=== PATIENT | male | born 1960 | race African-American/Black ===

== ENCOUNTER 2017-12-02 20:56 | Inpatient (IN) | payer SELFPAY ==
[2017-12-02] MEDS ORDERED: ASPIRIN 81 MG TABLET, CHEWABLE PO ONE (21:20)
[2017-12-02 22:11] LABS: ABSOLUTE LYMPHOCYTES (AUTO) 0.8 10^3/uL (0.5-4.7); ABSOLUTE MONOCYTES (AUTO) 0.6 10^3/uL (0.1-1.4); ABSOLUTE NEUT (AUTO) 7.3 10^3/uL (1.7-8.2); BASOPHILS % (AUTO) 0.5 % (0-2); EOSINOPHILS % (AUTO) 0.1 % (0-6); HEMATOCRIT 41.8 % (37.9-51.0); HEMOGLOBIN 14.2 g/dL (13.5-17.0); MEAN CORPUSCULAR HEMOGLOBIN 32.1 pg (27.0-33.4); MEAN CORPUSCULAR VOLUME 94 fl (80-97); MONOCYTES % (AUTO) 6.9 % (3-13); PLATELET COUNT 160 10^3/uL (150-450); RED BLOOD COUNT 4.43 10^6/uL (4.35-5.55); SEGMENTED NEUTROPHILS % (AUTO) 83.5 % (42-78); TOTAL CELLS COUNTED % (AUTO) 100 %; WHITE BLOOD COUNT 8.8 10^3/uL (4.0-10.5)
--- NOTE | 2017-12-02 22:20 | RADIOLOGY REPORT (SQ) ---
EXAM DESCRIPTION: CHEST SINGLE VIEW COMPLETED DATE/TIME: 12/02/2017 10:04 pm REASON FOR STUDY: chest pain COMPARISON: None. EXAM PARAMETERS: NUMBER OF VIEWS: One view. TECHNIQUE: Single frontal radiographic view of the chest acquired. RADIATION DOSE: NA LIMITATIONS: None. FINDINGS: LUNGS AND PLEURA: There is mild hyperexpansion of the lungs. Mild interstitial changes ar e suggested in the lung bases. There is a minimal right pleural effusion. No localized infiltrate i s present. No mass is seen MEDIASTINUM AND HILAR STRUCTURES: No masses. Contour normal. HEART AND VASCULAR STRUCTURES: Heart normal in size. Normal vasculature. BONES: No acute findings. HARDWARE: None in the chest. OTHER: No other significant finding. IMPRESSION: Chronic lung changes with small right pleural effusion and no acute cardiopulmonary dise ase. TECHNICAL DOCUMENTATION: JOB ID: [id number] [employer]- All Rights Reserved Reading location - IP/workstation name: [email or web address]
[2017-12-02 22:25] LABS: ALANINE AMINOTRANSFERASE 80 U/L (21-72); ALBUMIN 4.6 g/dL (3.5-5.0); ALKALINE PHOSPHATASE 147 U/L (38-126); ANION GAP 18 (5-19); ASPARTATE AMINO TRANSFERASE 130 U/L (17-59); BILIRUBIN,DIRECT 0.3 mg/dL (0.0-0.4); BILIRUBIN,TOTAL 0.5 mg/dL (0.2-1.3); BLOOD UREA NITROGEN 9 mg/dL (7-20); CALCIUM 9.4 mg/dL (8.4-10.2); CARBON DIOXIDE 22 mmol/L (22-30); CHLORIDE 97 mmol/L (98-107); CREATINE KINASE 116 U/L (55-170); GLUCOSE 87 mg/dL (75-110); POTASSIUM 4.6 mmol/L (3.6-5.0); SODIUM 136.6 mmol/L (137-145); TOTAL PROTEIN 8.6 g/dL (6.3-8.2)
[2017-12-02 22:37] LABS: CREATINE KINASE MB 0.87 ng/mL (<4.55); TROPONIN I < 0.012 ng/mL
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
[2017-12-02] MEDS ORDERED: IPRATROPIUM/ALBUTEROL 0.5-2.5 MG/3 ML AMPUL NEB ONE (23:42)
[2017-12-02] MEDS ORDERED: NORMAL SALINE 1000 ML 1,000 ML IV ONE (23:42)
[2017-12-02] MEDS ORDERED: KETOROLAC TROMETHAMINE INJ/PF 30 MG/1 ML SDV IV ONE (23:43)
[2017-12-03 01:12] LABS: APPEARANCE,URINE SLIGHTLY-CLOUDY; BILIRUBIN,URINE NEGATIVE (NEGATIVE); COLOR,URINE YELLOW; GLUCOSE, URINE NEGATIVE (NEGATIVE); KETONES,URINE TRACE mg/dL (NEGATIVE); LEUKOCYTE ESTERASE,URINE NEGATIVE (NEGATIVE); NITRITE,URINE NEGATIVE (NEGATIVE); PROTEIN,URINE 100 mg/dL (NEGATIVE); URINE SPECIFIC GRAVITY 1.026
--- NOTE | 2017-12-03 01:19 | RADIOLOGY REPORT (SQ) ---
EXAM DESCRIPTION: CT ABD/PELVIS WITH IV ONLY (accession [id number]), CT CHEST WITH (accession [id number]) CLINICAL HISTORY: 57 years Male, Right upper quadrant and right lower quadrant pain COMPARISON: CR, 12/02/17. TECHNIQUE: 59 mL Isovue-370 IV contrast. Coronal and sagittal reformat. This exam was performed according to our departmental dose-optimization program, which includes automated exposure control, adjustment of the mA and/or kV according to patient size and/or use of iterative reconstruction technique. FINDINGS: Moderate patchy airspace opacity in the right lower lobe and small patchiness of the right middle lobe. Scattered reticular mild patchiness of the right upper lobe. Mild mediastinal lymphadenopathy includes a 1.6 and earlier precarinal lymph node. Atherosclerosis. 0.3 cm degenerative L5 retrolisthesis. [id number] disc bulge between the L3 and S1 levels. Mild bilateral L5 foraminal stenoses. Inferior neck, axillae, airway, heart, liver, gallbladder, pancreas, spleen, adrenals, renal system, gastrointestinal tract, pelvic organs, lymphatics, vasculature, and musculoskeleton appear otherwise unremarkable. IMPRESSION: 1. Multifocal right-sided pneumonia. 2. No acute abdominal or pelvic findings.
--- NOTE | 2017-12-03 01:19 | RADIOLOGY REPORT (SQ) ---
EXAM DESCRIPTION: CT ABD/PELVIS WITH IV ONLY (accession [id number]), CT CHEST WITH (accession [id number]) CLINICAL HISTORY: 57 years Male, Right upper quadrant and right lower quadrant pain COMPARISON: CR, 12/02/17. TECHNIQUE: 59 mL Isovue-370 IV contrast. Coronal and sagittal reformat. This exam was performed according to our departmental dose-optimization program, which includes automated exposure control, adjustment of the mA and/or kV according to patient size and/or use of iterative reconstruction technique. FINDINGS: Moderate patchy airspace opacity in the right lower lobe and small patchiness of the right middle lobe. Scattered reticular mild patchiness of the right upper lobe. Mild mediastinal lymphadenopathy includes a 1.6 and earlier precarinal lymph node. Atherosclerosis. 0.3 cm degenerative L5 retrolisthesis. Damku-ro-szhmjbcp disc bulge between the L3 and S1 levels. Mild bilateral L5 foraminal stenoses. Inferior neck, axillae, airway, heart, liver, gallbladder, pancreas, spleen, adrenals, renal system, gastrointestinal tract, pelvic organs, lymphatics, vasculature, and musculoskeleton appear otherwise unremarkable. IMPRESSION: 1. Multifocal right-sided pneumonia. 2. No acute abdominal or pelvic findings.
[2017-12-03] MEDS ORDERED: IPRATROPIUM/ALBUTEROL 0.5-2.5 MG/3 ML AMPUL NEB PRN ×3 (01:32→01:33)
[2017-12-03] MEDS ORDERED: ACETAMINOPHEN 325 MG TABLET PO PRN (01:32)
[2017-12-03] MEDS ORDERED: HYDRALAZINE HCL INJ/PF 20 MG/1 ML SDV IV PRN (01:32)
[2017-12-03] MEDS ORDERED: TUBERCULIN,PURIF.PROT.DERIV. 5 TU/0.1 ML TEST 1 ML VIAL ID ONE ×2 (01:33→11:30)
[2017-12-03] MEDS ORDERED: CEFTRIAXONE INJ 1000 MG VIAL IV ONE (01:34)
[2017-12-03] MEDS ORDERED: AZITHROMYCIN INJ 500 MG VIAL IV ONE (01:34)
[2017-12-03] MEDS ORDERED: NORMAL SALINE 1000 ML 1,000 ML IV SCH (01:45)
[2017-12-03] MEDS ORDERED: AZITHROMYCIN INJ 500 MG VIAL IV PRN ×2 (01:54→02:00)
[2017-12-03] MEDS ORDERED: CEFTRIAXONE 1 GM/D5W RTU 1 GM/50 ML RTUPB IV ONE (02:00)
[2017-12-03] MEDS ORDERED: AZITHROMYCIN 500 MG in DEXTROSE 5%-WATER 250 ML IV ONE (02:00)
[2017-12-03] MEDS: ACETAMINOPHEN 325 MG TABLET PO PRN (04:08)
[2017-12-03] MEDS: HEPARIN SOD (PORCINE) 5,000 UNIT/ML 1 ML SYRINGE SUBCUT SCH ×3 (05:21→21:05)
[2017-12-03] MEDS ORDERED: HEPARIN SOD (PORCINE) 5,000 UNIT/ML 1 ML SYRINGE SUBCUT SCH (06:00)
[2017-12-03 06:24] LABS: ABSOLUTE LYMPHOCYTES (AUTO) 0.4 10^3/uL (0.5-4.7); ABSOLUTE MONOCYTES (AUTO) 0.5 10^3/uL (0.1-1.4); ABSOLUTE NEUT (AUTO) 6.2 10^3/uL (1.7-8.2); BASOPHILS % (AUTO) 0.3 % (0-2); EOSINOPHILS % (AUTO) 0.1 % (0-6); HEMATOCRIT 35.3 % (37.9-51.0); LYMPHOCYTES % (AUTO) 5.6 % (13-45); MEAN CORPUSCULAR HEMOGLOBIN 31.7 pg (27.0-33.4); MEAN CORPUSCULAR HGB CONC 33.8 g/dL (32.0-36.0); MEAN CORPUSCULAR VOLUME 94 fl (80-97); MONOCYTES % (AUTO) 7.2 % (3-13); PLATELET COUNT 117 10^3/uL (150-450); RED BLOOD COUNT 3.77 10^6/uL (4.35-5.55); RED CELL DISTRIBUTION WIDTH 14.2 % (11.5-14.0); SEGMENTED NEUTROPHILS % (AUTO) 86.8 % (42-78); TOTAL CELLS COUNTED % (AUTO) 100 %; WHITE BLOOD COUNT 7.1 10^3/uL (4.0-10.5)
[2017-12-03 06:25] LABS: HEMOGLOBIN 11.9 g/dL (13.5-17.0)
--- NOTE | 2017-12-03 07:52 | EKG REPORT ---
SEVERITY:- BORDERLINE ECG - SINUS TACHYCARDIA PROBABLE LEFT ATRIAL ABNORMALITY NONSPECIFIC ST-T CHANGES LATERAL LEADS. INTRAVENTRICULAR CONDUCTION DELAY : Confirmed by: Agustin Jean MD 03-Dec-2017 07:52:01
[2017-12-03] MEDS: KETOROLAC TROMETHAMINE INJ/PF 30 MG/1 ML SDV IV PRN ×2 (10:16→18:14)
[2017-12-03] MEDS: FLUTICASONE NASAL SPRAY 50 MCG/SPRY 120 SPRAY/16 GM NASL SCH ×2 (10:18→21:04)
[2017-12-03] MEDS: THIAMINE HCL 100 MG, FOLIC ACID 1 MG in NORMAL SALINE 250 ML IV SCH (10:33)
--- NOTE | 2017-12-03 16:34 | PDOC PROGRESS REPORT ---
Subjective Progress Note for:: 12/03/17 Subjective:: Medial overnight with difficulty breathing Reason For Visit: COPD EXACERBATION, PNEUMONIA Physical Exam Vital Signs: Temp Pulse Resp BP Pulse Ox 98.9 F 78 16 138/82 H 98 12/03/17 10:55 12/03/17 14:00 12/03/17 12:29 12/03/17 10:55 12/03/17 12:29 Intake & Output 12/02/17 12/03/17 12/04/17 06:59 06:59 06:59 Intake Total 460 Balance 460 Weight 59.4 kg General appearance: PRESENT: no acute distress Head exam: PRESENT: atraumatic Eye exam: PRESENT: conjunctiva pink, EOMI, PERRLA. ABSENT: scleral icterus Neck exam: ABSENT: carotid bruit, JVD, lymphadenopathy, thyromegaly Respiratory exam: PRESENT: clear to auscultation ammon, decreased breath sounds, unlabored. ABSENT: rales, rhonchi, wheezes Cardiovascular exam: PRESENT: RRR. ABSENT: diastolic murmur, rubs, systolic murmur Rectal exam: PRESENT: deferred Neurological exam: PRESENT: alert, awake, oriented to person, oriented to place , oriented to time Results Laboratory Results: 12/03/17 05:47 12/03/17 05:47 WBC 7.1 RBC 3.77 L Hgb 11.9 L D Hct 35.3 L MCV 94 MCH 31.7 MCHC 33.8 RDW 14.2 H Plt Count 117 L Seg Neutrophils % 86.8 H Lymphocytes % 5.6 L Monocytes % 7.2 Eosinophils % 0.1 Basophils % 0.3 Absolute Neutrophils 6.2 Absolute Lymphocytes 0.4 L Absolute Monocytes 0.5 Absolute Eosinophils 0.0 Absolute Basophils 0.0 12/03/17 05:47 Creatine Kinase 95 Impressions: Chest X-Ray 12/02/17 21:20 IMPRESSION: Chronic lung changes with small right pleural effusion and no acute cardiopulmonary disease. Abdomen/Pelvis CT 12/03/17 00:00 IMPRESSION: 1. Multifocal right-sided pneumonia. 2. No acute abdominal or pelvic findings. Chest CT 12/03/17 00:00 IMPRESSION: 1. Multifocal right-sided pneumonia. 2. No acute abdominal or pelvic findings. Assessment & Plan - Time Time Spent with patient: 15-24 minutes Medications reviewed and adjusted accordingly: Yes Anticipated discharge: Home - Inpatient Certification Based on my medical assessment, after consideration of the patient's comorbidities, presenting symptoms, or acuity I expect that the services needed warrant INPATIENT care.: Yes Medical Necessity: Need for IV Antibiotics - Plan Summary Plan Summary: Community-acquired pneumonia possibly gram-positive And CT scan of the chest shows multifocal right-sided pneumonia. Patient is currently on Zithromax as well as ceftriaxone. #2 anemia -his hemoglobin is noted to have dropped from 14.2-11.9 but this is likely a result of hemodilution with initial one due to concentration
--- NOTE | 2017-12-03 17:26 | Progress Note ---
Provider Note Provider Note: Microbiology report indicates gram-negative rods bacteremia as well as anaerobes. This is a. Preliminary report. I have changed his antibiotics to ertapenem from ceftriaxone and continued the Zithromax for atypical coverage. The changes can be made once the full culture results available.
[2017-12-03] MEDS: ONDANSETRON HCL INJ/PF 4 MG/2 ML SDV IV PRN (20:14)
[2017-12-03] MEDS: ERTAPENEM SODIUM 1 GM in NORMAL SALINE 50 ML IV SCH (20:14)
[2017-12-03] MEDS: AZITHROMYCIN 500 MG in DEXTROSE 5%-WATER 250 ML IV SCH (21:04)
[2017-12-03] MEDS ORDERED: CEFTRIAXONE SODIUM 1,000 MG in NORMAL SALINE 100 ML IV SCH (22:00)
[2017-12-03] MEDS ORDERED: CEFTRIAXONE 1 GM/D5W RTU 1 GM/50 ML RTUPB IV SCH (22:00)
[2017-12-04] MEDS: HEPARIN SOD (PORCINE) 5,000 UNIT/ML 1 ML SYRINGE SUBCUT SCH ×3 (05:12→20:43)
[2017-12-04 05:19] LABS: ABSOLUTE LYMPHOCYTES (AUTO) 0.7 10^3/uL (0.5-4.7); ABSOLUTE MONOCYTES (AUTO) 0.5 10^3/uL (0.1-1.4); ABSOLUTE NEUT (AUTO) 4.1 10^3/uL (1.7-8.2); BASOPHILS % (AUTO) 0.4 % (0-2); EOSINOPHILS % (AUTO) 0.7 % (0-6); HEMATOCRIT 36.4 % (37.9-51.0); HEMOGLOBIN 12.3 g/dL (13.5-17.0); LYMPHOCYTES % (AUTO) 12.9 % (13-45); MEAN CORPUSCULAR HEMOGLOBIN 32.1 pg (27.0-33.4); MEAN CORPUSCULAR HGB CONC 33.9 g/dL (32.0-36.0); MEAN CORPUSCULAR VOLUME 95 fl (80-97); MONOCYTES % (AUTO) 8.8 % (3-13); PLATELET COUNT 121 10^3/uL (150-450); RED BLOOD COUNT 3.85 10^6/uL (4.35-5.55); RED CELL DISTRIBUTION WIDTH 13.8 % (11.5-14.0); SEGMENTED NEUTROPHILS % (AUTO) 77.2 % (42-78); TOTAL CELLS COUNTED % (AUTO) 100 %; WHITE BLOOD COUNT 5.3 10^3/uL (4.0-10.5)
[2017-12-04 05:45] LABS: ALANINE AMINOTRANSFERASE 50 U/L (21-72); ALBUMIN 3.2 g/dL (3.5-5.0); ALKALINE PHOSPHATASE 100 U/L (38-126); ANION GAP 8 (5-19); ASPARTATE AMINO TRANSFERASE 54 U/L (17-59); BILIRUBIN,DIRECT 0.4 mg/dL (0.0-0.4); BILIRUBIN,TOTAL 0.7 mg/dL (0.2-1.3); BLOOD UREA NITROGEN 10 mg/dL (7-20); CALCIUM 8.5 mg/dL (8.4-10.2); CARBON DIOXIDE 26 mmol/L (22-30); CHLORIDE 96 mmol/L (98-107); GLUCOSE 74 mg/dL (75-110); POTASSIUM 3.9 mmol/L (3.6-5.0); SODIUM 129.9 mmol/L (137-145); TOTAL PROTEIN 6.6 g/dL (6.3-8.2)
[2017-12-04] MEDS: GUAIFENESIN SYRP 200 MG/10 ML UDC PO PRN ×2 (08:17→18:05)
[2017-12-04] MEDS: ACETAMINOPHEN 325 MG TABLET PO PRN ×2 (08:18→23:30)
[2017-12-04] MEDS: LORAZEPAM INJ 2 MG/1 ML VIAL IV PRN ×2 (08:18→21:54)
[2017-12-04] MEDS: FLUTICASONE NASAL SPRAY 50 MCG/SPRY 120 SPRAY/16 GM NASL SCH ×2 (10:56→21:35)
[2017-12-04] MEDS: THIAMINE HCL 100 MG, FOLIC ACID 1 MG in NORMAL SALINE 250 ML IV SCH (10:56)
--- NOTE | 2017-12-04 17:50 | PDOC PROGRESS REPORT ---
Subjective Progress Note for:: 12/04/17 Subjective:: Doing okay, denies nausea or vomiting, no fever or chills. Microbiology no reports patient's culture is not gram-negative rods, both gram-positive bacillus. Reason For Visit: COPD EXACERBATION, PNEUMONIA Physical Exam Vital Signs: Temp Pulse Resp BP Pulse Ox 98.5 F 81 18 131/85 H 99 12/04/17 15:42 12/04/17 15:42 12/04/17 15:42 12/04/17 15:42 12/04/17 15:42 Intake & Output 12/03/17 12/04/17 12/05/17 06:59 06:59 06:59 Intake Total 460 1917 384 Output Total 50 200 Balance 460 1867 184 Weight 59.4 kg 60.2 kg GEN: NAD, well-developed, well-nourished CV: RRR, NL S1S2 LUNGS: Few basilar crackles bilaterally ABDOMEN Soft, NT, +BS EXTERMITIES: No e/c/c NEURO: Alert, oriented Results Laboratory Results: 12/04/17 04:33 12/04/17 04:33 12/04/17 12/04/17 04:33 04:33 WBC 5.3 RBC 3.85 L Hgb 12.3 L Hct 36.4 L MCV 95 MCH 32.1 MCHC 33.9 RDW 13.8 Plt Count 121 L Seg Neutrophils % 77.2 Lymphocytes % 12.9 L Monocytes % 8.8 Eosinophils % 0.7 Basophils % 0.4 Absolute Neutrophils 4.1 Absolute Lymphocytes 0.7 Absolute Monocytes 0.5 Absolute Eosinophils 0.0 Absolute Basophils 0.0 Sodium 129.9 L Potassium 3.9 Chloride 96 L Carbon Dioxide 26 Anion Gap 8 BUN 10 Creatinine 0.65 Est GFR ( Amer) > 60 Est GFR (Non-Af Amer) > 60 Glucose 74 L Calcium 8.5 Total Bilirubin 0.7 AST 54 ALT 50 Alkaline Phosphatase 100 Total Protein 6.6 Albumin 3.2 L 12/03/17 05:47 Creatine Kinase 95 Impressions: Chest X-Ray 12/02/17 21:20 IMPRESSION: Chronic lung changes with small right pleural effusion and no acute cardiopulmonary disease. Abdomen/Pelvis CT 12/03/17 00:00 IMPRESSION: 1. Multifocal right-sided pneumonia. 2. No acute abdominal or pelvic findings. Chest CT 12/03/17 00:00 IMPRESSION: 1. Multifocal right-sided pneumonia. 2. No acute abdominal or pelvic findings. Assessment & Plan - Diagnosis (1) Community acquired bacterial pneumonia Is this a current diagnosis for this admission?: Yes Plan: We continue Invanz and azithromycin for now. We will recheck blood cultures, although microbiology suspecting gram-positive rods are contaminant. (2) Anemia Plan: Patient is stable from yesterday. Continue to trend.
[2017-12-04] MEDS: ERTAPENEM SODIUM 1 GM in NORMAL SALINE 50 ML IV SCH (20:40)
[2017-12-04] MEDS: AZITHROMYCIN 500 MG in DEXTROSE 5%-WATER 250 ML IV SCH (21:57)
[2017-12-05] MEDS: LORAZEPAM INJ 2 MG/1 ML VIAL IV PRN ×9 (00:21→20:19)
[2017-12-05] MEDS ORDERED: LORAZEPAM INJ 2 MG/1 ML VIAL IV ONE ×2 (01:45)
[2017-12-05] MEDS: HEPARIN SOD (PORCINE) 5,000 UNIT/ML 1 ML SYRINGE SUBCUT SCH ×3 (05:18→22:11)
[2017-12-05 06:35] LABS: ABSOLUTE LYMPHOCYTES (AUTO) 0.7 10^3/uL (0.5-4.7); ABSOLUTE MONOCYTES (AUTO) 0.4 10^3/uL (0.1-1.4); ABSOLUTE NEUT (AUTO) 2.7 10^3/uL (1.7-8.2); BASOPHILS % (AUTO) 0.4 % (0-2); EOSINOPHILS % (AUTO) 0.5 % (0-6); HEMATOCRIT 37.5 % (37.9-51.0); HEMOGLOBIN 12.9 g/dL (13.5-17.0); MEAN CORPUSCULAR HEMOGLOBIN 32.4 pg (27.0-33.4); MEAN CORPUSCULAR HGB CONC 34.3 g/dL (32.0-36.0); MEAN CORPUSCULAR VOLUME 94 fl (80-97); MONOCYTES % (AUTO) 11.4 % (3-13); PLATELET COUNT 125 10^3/uL (150-450); RED BLOOD COUNT 3.98 10^6/uL (4.35-5.55); RED CELL DISTRIBUTION WIDTH 13.5 % (11.5-14.0); SEGMENTED NEUTROPHILS % (AUTO) 69.7 % (42-78); TOTAL CELLS COUNTED % (AUTO) 100 %; WHITE BLOOD COUNT 3.9 10^3/uL (4.0-10.5)
[2017-12-05 06:45] LABS: ANION GAP 8 (5-19); BLOOD UREA NITROGEN 8 mg/dL (7-20); CALCIUM 9.2 mg/dL (8.4-10.2); CARBON DIOXIDE 28 mmol/L (22-30); CHLORIDE 96 mmol/L (98-107); GLUCOSE 96 mg/dL (75-110); POTASSIUM 3.7 mmol/L (3.6-5.0); SODIUM 131.5 mmol/L (137-145)
[2017-12-05] MEDS: THIAMINE HCL 100 MG, FOLIC ACID 1 MG in NORMAL SALINE 250 ML IV SCH (09:32)
[2017-12-05] MEDS: FLUTICASONE NASAL SPRAY 50 MCG/SPRY 120 SPRAY/16 GM NASL SCH ×2 (09:33→22:06)
--- NOTE | 2017-12-05 18:55 | PDOC PROGRESS REPORT ---
Subjective Progress Note for:: 12/05/17 Subjective:: Doing okay, denies nausea or vomiting, no fever or chills. Microbiology now reported patient's culture is not gram-negative rods, but gram-positive bacillus. Repeat blood cultures and a result pending. Overnight patient with complications and symptoms of DTs. Quad restraint. Also receiving Ativan for DTs. Reason For Visit: COPD EXACERBATION, PNEUMONIA Physical Exam Vital Signs: Temp Pulse Resp BP Pulse Ox 97.9 F 79 18 159/95 H 100 12/05/17 15:33 12/05/17 15:33 12/05/17 15:33 12/05/17 15:33 12/05/17 15:33 Intake & Output 12/04/17 12/05/17 12/06/17 06:59 06:59 06:59 Intake Total 1917 1029 384 Output Total 50 300 Balance 1867 729 384 Weight 60.2 kg 55.6 kg GEN: NAD, well-developed, well-nourished CV: RRR, NL S1S2 LUNGS: Few basilar crackles bilaterally ABDOMEN Soft, NT, +BS EXTERMITIES: No e/c/c NEURO: Alert, oriented to name, place, no acute lateralizing weakness Results Laboratory Results: 12/05/17 06:04 12/05/17 06:04 12/05/17 12/05/17 06:04 06:04 WBC 3.9 L RBC 3.98 L Hgb 12.9 L Hct 37.5 L MCV 94 MCH 32.4 MCHC 34.3 RDW 13.5 Plt Count 125 L Seg Neutrophils % 69.7 Lymphocytes % 18.0 Monocytes % 11.4 Eosinophils % 0.5 Basophils % 0.4 Absolute Neutrophils 2.7 Absolute Lymphocytes 0.7 Absolute Monocytes 0.4 Absolute Eosinophils 0.0 Absolute Basophils 0.0 Sodium 131.5 L Potassium 3.7 Chloride 96 L Carbon Dioxide 28 Anion Gap 8 BUN 8 Creatinine 0.58 Est GFR ( Amer) > 60 Est GFR (Non-Af Amer) > 60 Glucose 96 Calcium 9.2 12/03/17 05:47 Creatine Kinase 95 Impressions: Chest X-Ray 12/02/17 21:20 IMPRESSION: Chronic lung changes with small right pleural effusion and no acute cardiopulmonary disease. Abdomen/Pelvis CT 12/03/17 00:00 IMPRESSION: 1. Multifocal right-sided pneumonia. 2. No acute abdominal or pelvic findings. Chest CT 12/03/17 00:00 IMPRESSION: 1. Multifocal right-sided pneumonia. 2. No acute abdominal or pelvic findings. Assessment & Plan - Diagnosis (1) Community acquired bacterial pneumonia Is this a current diagnosis for this admission?: Yes Plan: We will continue Invanz and azithromycin for now. We will follow-up recheck blood cultures results, although microbiology suspecting gram-positive rods are contaminant. (2) Anemia Plan: Hemoglobin remained stable. Continue to trend. (4) Alcohol withdrawal syndrome Is this a current diagnosis for this admission?: Yes Plan: We will treat with Ativan. Will start thiamine and folic acid. Alcohol cessation counseling. Consider outpatient rehab at discharge.
[2017-12-05] MEDS ORDERED: LORAZEPAM 1 MG TABLET PO ONE (20:00)
[2017-12-05] MEDS: ERTAPENEM SODIUM 1 GM in NORMAL SALINE 100 ML IV SCH (20:18)
[2017-12-05] MEDS: AZITHROMYCIN 500 MG in DEXTROSE 5%-WATER 250 ML IV SCH (22:12)
[2017-12-06] MEDS: LORAZEPAM 1 MG TABLET PO SCH ×5 (00:02→23:33)
[2017-12-06] MEDS: LORAZEPAM INJ 2 MG/1 ML VIAL IV PRN ×3 (04:57→20:42)
[2017-12-06] MEDS: HEPARIN SOD (PORCINE) 5,000 UNIT/ML 1 ML SYRINGE SUBCUT SCH ×3 (06:06→22:19)
[2017-12-06 07:05] LABS: ABSOLUTE EOSINOPHILS # (AUTO) 0.1 10^3/uL (0.0-0.6); ABSOLUTE MONOCYTES (AUTO) 0.7 10^3/uL (0.1-1.4); ABSOLUTE NEUT (AUTO) 2.7 10^3/uL (1.7-8.2); BASOPHILS % (AUTO) 0.4 % (0-2); EOSINOPHILS % (AUTO) 1.7 % (0-6); HEMATOCRIT 39.4 % (37.9-51.0); HEMOGLOBIN 13.3 g/dL (13.5-17.0); LYMPHOCYTES % (AUTO) 21.8 % (13-45); MEAN CORPUSCULAR HEMOGLOBIN 32.1 pg (27.0-33.4); MEAN CORPUSCULAR HGB CONC 33.8 g/dL (32.0-36.0); MEAN CORPUSCULAR VOLUME 95 fl (80-97); MONOCYTES % (AUTO) 14.9 % (3-13); PLATELET COUNT 143 10^3/uL (150-450); RED BLOOD COUNT 4.16 10^6/uL (4.35-5.55); RED CELL DISTRIBUTION WIDTH 13.6 % (11.5-14.0); SEGMENTED NEUTROPHILS % (AUTO) 61.2 % (42-78); TOTAL CELLS COUNTED % (AUTO) 100 %; WHITE BLOOD COUNT 4.4 10^3/uL (4.0-10.5)
[2017-12-06 07:27] LABS: ALANINE AMINOTRANSFERASE 72 U/L (21-72); ALBUMIN 3.5 g/dL (3.5-5.0); ALKALINE PHOSPHATASE 94 U/L (38-126); ANION GAP 8 (5-19); ASPARTATE AMINO TRANSFERASE 86 U/L (17-59); BILIRUBIN,DIRECT 0.2 mg/dL (0.0-0.4); BILIRUBIN,TOTAL 0.5 mg/dL (0.2-1.3); BLOOD UREA NITROGEN 5 mg/dL (7-20); CALCIUM 9.2 mg/dL (8.4-10.2); CARBON DIOXIDE 27 mmol/L (22-30); CHLORIDE 100 mmol/L (98-107); GLUCOSE 104 mg/dL (75-110); POTASSIUM 3.9 mmol/L (3.6-5.0); SODIUM 135.4 mmol/L (137-145); TOTAL PROTEIN 6.5 g/dL (6.3-8.2)
[2017-12-06] MEDS: THIAMINE HCL 100 MG, FOLIC ACID 1 MG in NORMAL SALINE 250 ML IV SCH (09:52)
[2017-12-06] MEDS: FLUTICASONE NASAL SPRAY 50 MCG/SPRY 120 SPRAY/16 GM NASL SCH ×2 (09:52→22:19)
--- NOTE | 2017-12-06 19:26 | PDOC PROGRESS REPORT ---
Subjective Progress Note for:: 12/06/17 Subjective:: Doing okay, alert and oriented to name and place at this time. Needed restraint again overnight for DTs. No fever or chills, no chest pain or shortness of breath or palpitations. Reason For Visit: COPD EXACERBATION, PNEUMONIA Physical Exam Vital Signs: Temp Pulse Resp BP Pulse Ox 98.1 F 94 17 115/82 96 12/06/17 15:27 12/06/17 15:27 12/06/17 15:27 12/06/17 15:27 12/06/17 15:27 Intake & Output 12/05/17 12/06/17 12/07/17 06:59 06:59 06:59 Intake Total 1029 864 384 Output Total 300 100 Balance 729 764 384 Weight 55.6 kg 52.8 kg GEN: NAD, well-developed, well-nourished CV: RRR, NL S1S2 LUNGS: Few basilar crackles bilaterally ABDOMEN Soft, NT, +BS EXTERMITIES: No e/c/c NEURO: Alert, oriented to name, place, no acute lateralizing weakness Results Laboratory Results: 12/06/17 06:33 12/06/17 06:33 12/06/17 12/06/17 06:33 06:33 WBC 4.4 RBC 4.16 L Hgb 13.3 L Hct 39.4 MCV 95 MCH 32.1 MCHC 33.8 RDW 13.6 Plt Count 143 L Seg Neutrophils % 61.2 Lymphocytes % 21.8 Monocytes % 14.9 H Eosinophils % 1.7 Basophils % 0.4 Absolute Neutrophils 2.7 Absolute Lymphocytes 1.0 Absolute Monocytes 0.7 Absolute Eosinophils 0.1 Absolute Basophils 0.0 Sodium 135.4 L Potassium 3.9 Chloride 100 Carbon Dioxide 27 Anion Gap 8 BUN 5 L Creatinine 0.63 Est GFR ( Amer) > 60 Est GFR (Non-Af Amer) > 60 Glucose 104 Calcium 9.2 Magnesium 1.8 Total Bilirubin 0.5 AST 86 H ALT 72 Alkaline Phosphatase 94 Total Protein 6.5 Albumin 3.5 12/03/17 05:47 Creatine Kinase 95 Impressions: Chest X-Ray 12/02/17 21:20 IMPRESSION: Chronic lung changes with small right pleural effusion and no acute cardiopulmonary disease. Abdomen/Pelvis CT 12/03/17 00:00 IMPRESSION: 1. Multifocal right-sided pneumonia. 2. No acute abdominal or pelvic findings. Chest CT 12/03/17 00:00 IMPRESSION: 1. Multifocal right-sided pneumonia. 2. No acute abdominal or pelvic findings. Assessment & Plan - Diagnosis (1) Community acquired bacterial pneumonia Is this a current diagnosis for this admission?: Yes Plan: We will continue Invanz and azithromycin for now. We will follow-up recheck blood cultures results, although microbiology suspecting gram-positive rods are contaminant. (2) Anemia Plan: Hemoglobin remained stable. (3) Hyponatremia Is this a current diagnosis for this admission?: Yes Plan: Improved. (4) Alcohol withdrawal syndrome Is this a current diagnosis for this admission?: Yes Plan: We will continue with Ativan at 1 mg q 6 hrs for now and prn coverage. Consider tirating down to 0.5mg q 6 hrs if patient improved by a.m. Will continue thiamine and folic acid. Alcohol cessation counseling. Consider outpatient rehab at discharge.
[2017-12-06] MEDS: ERTAPENEM SODIUM 1 GM in NORMAL SALINE 100 ML IV SCH (20:42)
[2017-12-06] MEDS: AZITHROMYCIN 500 MG in DEXTROSE 5%-WATER 250 ML IV SCH (22:18)
[2017-12-07] MEDS: HEPARIN SOD (PORCINE) 5,000 UNIT/ML 1 ML SYRINGE SUBCUT SCH ×3 (06:50→22:04)
[2017-12-07] MEDS: LORAZEPAM 1 MG TABLET PO SCH ×4 (06:50→23:31)
[2017-12-07] MEDS: LORAZEPAM INJ 2 MG/1 ML VIAL IV PRN ×3 (07:41→22:59)
[2017-12-07 07:52] LABS: ABSOLUTE EOSINOPHILS # (AUTO) 0.1 10^3/uL (0.0-0.6); ABSOLUTE MONOCYTES (AUTO) 0.7 10^3/uL (0.1-1.4); ABSOLUTE NEUT (AUTO) 2.7 10^3/uL (1.7-8.2); BASOPHILS % (AUTO) 0.6 % (0-2); EOSINOPHILS % (AUTO) 2.3 % (0-6); HEMATOCRIT 38.3 % (37.9-51.0); LYMPHOCYTES % (AUTO) 21.6 % (13-45); MEAN CORPUSCULAR HEMOGLOBIN 32.1 pg (27.0-33.4); MEAN CORPUSCULAR HGB CONC 33.9 g/dL (32.0-36.0); MEAN CORPUSCULAR VOLUME 95 fl (80-97); MONOCYTES % (AUTO) 15.5 % (3-13); PLATELET COUNT 194 10^3/uL (150-450); RED BLOOD COUNT 4.04 10^6/uL (4.35-5.55); RED CELL DISTRIBUTION WIDTH 13.5 % (11.5-14.0); TOTAL CELLS COUNTED % (AUTO) 100 %; WHITE BLOOD COUNT 4.6 10^3/uL (4.0-10.5)
[2017-12-07 08:24] LABS: ANION GAP 9 (5-19); BLOOD UREA NITROGEN 7 mg/dL (7-20); CALCIUM 9.4 mg/dL (8.4-10.2); CARBON DIOXIDE 27 mmol/L (22-30); CHLORIDE 101 mmol/L (98-107); GLUCOSE 86 mg/dL (75-110); POTASSIUM 3.9 mmol/L (3.6-5.0); SODIUM 136.9 mmol/L (137-145)
[2017-12-07] MEDS: THIAMINE HCL 100 MG, FOLIC ACID 1 MG in NORMAL SALINE 250 ML IV SCH (10:16)
[2017-12-07] MEDS: FLUTICASONE NASAL SPRAY 50 MCG/SPRY 120 SPRAY/16 GM NASL SCH ×2 (10:17→22:03)
--- NOTE | 2017-12-07 15:14 | RADIOLOGY REPORT (SQ) ---
EXAM DESCRIPTION: CT ABD/PELVIS WITH IV ONLY COMPLETED DATE/TIME: 12/07/2017 2:48 pm REASON FOR STUDY: abdominal pain, diarrhea COMPARISON: 12/03/2017. TECHNIQUE: CT scan of the abdomen and pelvis performed using helical scanning technique with dynamic intravenous contrast injection. No oral contrast. Images reviewed with lung, soft tissue, and bone windows. Reconstructed coronal and sagittal MPR images reviewed. Delayed images for evaluation of the urinary system also acquired. All images stored on PACS. All CT scanners at this facility use dose modulation, iterative reconstruction, and/or weight based d osing when appropriate to reduce radiation dose to as low as reasonably achievable (ALARA). [facility]: Dose Right [facility]: CareDose [facility]: Dose Right [facility]: Teradose 4D [facility]: Tru-Friends CONTRAST TYPE AND DOSE: contrast/concentration: Isovue 370.00 mg/ml; Total Contrast Delivered: 58.0 ml; Total Saline Delivered: 65.0 ml RENAL FUNCTION: BUN 7 creatinine 0.66. RADIATION DOSE: CT Rad equipment meets quality standard of care and radiation dose reduction techniq ues were employed. CTDIvol: 4.8 - 5.3 mGy. DLP: 503 mGy-cm.. LIMITATIONS: None. FINDINGS: LOWER CHEST: Again seen are scattered parenchymal opacities in the right lung base. LIVER: Normal size. No masses. No dilated ducts. SPLEEN: Normal size. No focal lesions. PANCREAS: No masses. No significant calcifications. No adjacent inflammation or peripancreatic fluid collections. Pancreatic duct not dilated. GALLBLADDER: No identified stones by CT criteria. No inflammatory changes to suggest cholecystitis. ADRENAL GLANDS: No significant masses or asymmetry. RIGHT KIDNEY AND URETER: No solid masses. No significant calcifications. No hydronephrosis or hyd roureter. LEFT KIDNEY AND URETER: No solid masses. No significant calcifications. No hydronephrosis or hydr oureter. AORTA AND VESSELS: No aneurysm. No dissection. Renal arteries, SMA, celiac without stenosis. RETROPERITONEUM: No retroperitoneal adenopathy, hemorrhage or masses. BOWEL AND PERITONEAL CAVITY: No masses or inflammatory changes. No free fluid or peritoneal masses. APPENDIX: Normal. PELVIS: No mass. No free fluid. Normal bladder. ABDOMINAL WALL: No masses. No hernias. BONES: No significant or acute findings. OTHER: No other significant finding. IMPRESSION: NO SIGNIFICANT OR ACUTE FINDING IN THE ABDOMEN OR PELVIS ON CT SCAN WITH IV CONTRAST. A GAIN SEEN ARE SCATTERED PARENCHYMAL OPACITIES IN THE RIGHT LUNG BASE. TECHNICAL DOCUMENTATION: JOB ID: [id number] Quality ID # [id number]: Final reports with documentation of one or more dose reduction techniques (e.g., Au tomated exposure control, adjustment of the mA and/or kV according to patient size, use of iterative reconstruction technique) 2010 [employer]- All Rights Reserved Reading location - IP/workstation name: [email or web address]
--- NOTE | 2017-12-07 16:13 | PDOC PROGRESS REPORT ---
Subjective Progress Note for:: 12/07/17 Subjective:: The patient is a 57-year-old male who was admitted to the hospital with shortness of breath and found to have a multifocal pneumonia. His hospitalization has been complicated by the development of alcohol withdrawal. Today when I saw the patient he states that he feels horrible. He states he has abdominal pain and that no one his listen to him. He denies fever or chills. No chest pain or heart palpitations. He states he continues to cough. He does have abdominal pain. He states he is having bowel movement and has had some loose stools. He has no urinary complaints. Reason For Visit: COPD EXACERBATION, PNEUMONIA Physical Exam Vital Signs: Temp Pulse Resp BP Pulse Ox 98.3 F 77 16 129/82 H 97 12/07/17 11:04 12/07/17 11:04 12/07/17 11:04 12/07/17 11:04 12/07/17 11:04 Intake & Output 12/06/17 12/07/17 12/08/17 06:59 06:59 06:59 Intake Total 864 1052 Output Total 100 1 Balance 764 1051 Weight 52.8 kg 54.8 kg General appearance: PRESENT: disheveled, thin, other - He looks as if he feels quite poorly. He is in no acute distress Head exam: PRESENT: atraumatic Mouth exam: PRESENT: moist, tongue midline Respiratory exam: PRESENT: clear to auscultation ammon, decreased breath sounds, other - Poor effort. ABSENT: rales, rhonchi, wheezes Cardiovascular exam: PRESENT: RRR. ABSENT: diastolic murmur, rubs, systolic murmur GI/Abdominal exam: PRESENT: firm, tenderness Rectal exam: PRESENT: deferred Extremities exam: PRESENT: full ROM. ABSENT: calf tenderness, clubbing, pedal edema Neurological exam: PRESENT: alert, awake, oriented to person, oriented to place , oriented to time, oriented to situation, CN II-XII grossly intact. ABSENT: motor sensory deficit Psychiatric exam: PRESENT: agitated Skin exam: PRESENT: dry, intact, warm. ABSENT: cyanosis, rash Results Laboratory Results: 12/07/17 06:30 12/07/17 06:30 12/07/17 12/07/17 06:30 06:30 WBC 4.6 RBC 4.04 L Hgb 13.0 L Hct 38.3 MCV 95 MCH 32.1 MCHC 33.9 RDW 13.5 Plt Count 194 Seg Neutrophils % 60.0 Lymphocytes % 21.6 Monocytes % 15.5 H Eosinophils % 2.3 Basophils % 0.6 Absolute Neutrophils 2.7 Absolute Lymphocytes 1.0 Absolute Monocytes 0.7 Absolute Eosinophils 0.1 Absolute Basophils 0.0 Sodium 136.9 L Potassium 3.9 Chloride 101 Carbon Dioxide 27 Anion Gap 9 BUN 7 Creatinine 0.66 Est GFR ( Amer) > 60 Est GFR (Non-Af Amer) > 60 Glucose 86 Calcium 9.4 12/03/17 05:47 Creatine Kinase 95 Impressions: Chest X-Ray 12/02/17 21:20 IMPRESSION: Chronic lung changes with small right pleural effusion and no acute cardiopulmonary disease. Chest CT 12/03/17 00:00 IMPRESSION: 1. Multifocal right-sided pneumonia. 2. No acute abdominal or pelvic findings. Abdomen/Pelvis CT 12/07/17 10:51 IMPRESSION: NO SIGNIFICANT OR ACUTE FINDING IN THE ABDOMEN OR PELVIS ON CT SCAN WITH IV CONTRAST. AGAIN SEEN ARE SCATTERED PARENCHYMAL OPACITIES IN THE RIGHT LUNG BASE. Assessment & Plan - Diagnosis (1) Pneumonia Is this a current diagnosis for this admission?: Yes Plan: Initially the concerns were for community-acquired pathogens such as gram positives and atypicals. The patient did have 1 out of 2 blood cultures positive for gram-negative rods. He was placed on IV ertapenem and continued with Zithromax at that time for atypical coverage. He did have a CT scan of the abdomen and pelvis today which reveals persistent infiltrates bilaterally. I am going to stop his Zithromax today and place the patient on doxycycline. (2) Abdominal pain Is this a current diagnosis for this admission?: Yes Plan: The patient's CT scan of his abdomen was unremarkable. The patient may have some constipation. He has not had a recorded bowel movement in over [address] the patient on stool softener twice daily until he has a good bowel movement. (3) Alcohol withdrawal syndrome Is this a current diagnosis for this admission?: Yes Plan: Resolved at this point. (4) Hyponatremia Is this a current diagnosis for this admission?: Yes Plan: Slowly improving (5) Anemia Is this a current diagnosis for this admission?: Yes Plan: He has a normocytic anemia consistent with chronic disease. His hemoglobin is stable (6) Positive blood culture Is this a current diagnosis for this admission?: Yes Plan: 1 out of 2 blood cultures were positive for bacillus species thought to be a contaminant. - Time Time Spent with patient: 25-34 minutes - Inpatient Certification Medical Necessity: Need for IV Antibiotics - Inpatient hospitalization remains necessary. The patient continues to require parenteral antibiotics for an underlying pneumonia that is slow to improve. I am not sure with this gentleman 's living situation is. He appears to be quite debilitated. I am going to have physical therapy see the patient and make sure that he can ambulate. I will get the discharge planners involved., Other
[2017-12-07] MEDS: ERTAPENEM SODIUM 1 GM in NORMAL SALINE 100 ML IV SCH (20:41)
[2017-12-07] MEDS: AZITHROMYCIN 500 MG in DEXTROSE 5%-WATER 250 ML IV SCH (22:04)
[2017-12-08] MEDS ORDERED: LORAZEPAM INJ 2 MG/1 ML VIAL ONE (00:10)
[2017-12-08] MEDS ORDERED: LORAZEPAM INJ 2 MG/1 ML VIAL IV ONE (00:15)
[2017-12-08] MEDS: LORAZEPAM INJ 2 MG/1 ML VIAL IV PRN ×7 (02:34→20:37)
[2017-12-08] MEDS: HEPARIN SOD (PORCINE) 5,000 UNIT/ML 1 ML SYRINGE SUBCUT SCH ×3 (06:42→23:24)
[2017-12-08] MEDS: LORAZEPAM 1 MG TABLET PO SCH ×4 (06:43→23:26)
[2017-12-08] MEDS: ONDANSETRON HCL INJ/PF 4 MG/2 ML SDV IV PRN (09:02)
[2017-12-08] MEDS: FOLIC ACID 1 MG TABLET PO SCH (09:02)
[2017-12-08] MEDS: THIAMINE HCL 100 MG TABLET PO SCH (09:02)
[2017-12-08] MEDS: FLUTICASONE NASAL SPRAY 50 MCG/SPRY 120 SPRAY/16 GM NASL SCH ×2 (09:03→23:22)
--- NOTE | 2017-12-08 16:13 | PDOC PROGRESS REPORT ---
Subjective Progress Note for:: 12/08/17 Subjective:: Patient states he still feels bad but is getting better. He became agitated this morning and was put into restraints but has been doing much better since about breakfast time and has been out of his restraints since then. He denies any chest pain or shortness of breath. Still feels weak. He has had a good appetite. He is denying any abdominal pain at this time Reason For Visit: COPD EXACERBATION, PNEUMONIA Physical Exam Vital Signs: Temp Pulse Resp BP Pulse Ox 97.7 F 88 17 135/82 H 100 12/08/17 11:28 12/08/17 14:00 12/08/17 11:28 12/08/17 11:28 12/08/17 11:28 Intake & Output 12/07/17 12/08/17 12/09/17 06:59 06:59 06:59 Intake Total 1052 1705 Output Total 1 625 Balance 1051 1080 Weight 54.8 kg 531 kg General appearance: PRESENT: no acute distress, well-developed, well-nourished Neck exam: ABSENT: carotid bruit, JVD, lymphadenopathy, thyromegaly Respiratory exam: PRESENT: clear to auscultation ammon. ABSENT: rales, rhonchi, wheezes Cardiovascular exam: PRESENT: RRR. ABSENT: diastolic murmur, rubs, systolic murmur Pulses: PRESENT: normal dorsalis pedis pul Vascular exam: PRESENT: normal capillary refill GI/Abdominal exam: PRESENT: normal bowel sounds, soft. ABSENT: distended, guarding, mass, organolmegaly, rebound, tenderness Neurological exam: PRESENT: alert, awake, oriented to person, oriented to place , oriented to time, oriented to situation. ABSENT: motor sensory deficit Psychiatric exam: PRESENT: agitated, appropriate affect. ABSENT: homicidal ideation, suicidal ideation Results Laboratory Results: 12/07/17 06:30 12/07/17 06:30 12/07/17 18:02 Stool Occult Blood POSITIVE 12/03/17 05:47 Creatine Kinase 95 Impressions: Chest X-Ray 12/02/17 21:20 IMPRESSION: Chronic lung changes with small right pleural effusion and no acute cardiopulmonary disease. Chest CT 12/03/17 00:00 IMPRESSION: 1. Multifocal right-sided pneumonia. 2. No acute abdominal or pelvic findings. Abdomen/Pelvis CT 12/07/17 10:51 IMPRESSION: NO SIGNIFICANT OR ACUTE FINDING IN THE ABDOMEN OR PELVIS ON CT SCAN WITH IV CONTRAST. AGAIN SEEN ARE SCATTERED PARENCHYMAL OPACITIES IN THE RIGHT LUNG BASE. Assessment & Plan - Diagnosis (1) Alcohol withdrawal syndrome Is this a current diagnosis for this admission?: Yes Plan: continue current medications and monitoring. (2) Community acquired bacterial pneumonia Is this a current diagnosis for this admission?: Yes Plan: continue antibiotics. he is breathing much better. Should be clear for discharge from a respiratory status tomorrow. (3) Hyponatremia Is this a current diagnosis for this admission?: Yes Plan: Improving, will continue to monitor (4) Positive blood culture Is this a current diagnosis for this admission?: Yes Plan: His blood culture was 1:2 and was gram positive rods and I feel this is a contaminant. Will continue his azithro for pneumonia but will d/c his ertapenem until cultures are back - Time Time Spent with patient: 15-24 minutes - Inpatient Certification Based on my medical assessment, after consideration of the patient's comorbidities, presenting symptoms, or acuity I expect that the services needed warrant INPATIENT care.: Yes I certify that my determination is in accordance with my understanding of Medicare's requirements for reasonable and necessary INPATIENT services [42 CFR 412.3e].: Yes Medical Necessity: Significant Comorbidiites Make Outpatient Treatment Too Risky , Need For IV Fluids
[2017-12-08 19:51] LABS: ALANINE AMINOTRANSFERASE 63 U/L (21-72); ALBUMIN 3.7 g/dL (3.5-5.0); ALKALINE PHOSPHATASE 99 U/L (38-126); ANION GAP 9 (5-19); ASPARTATE AMINO TRANSFERASE 50 U/L (17-59); BILIRUBIN,DIRECT 0.3 mg/dL (0.0-0.4); BILIRUBIN,TOTAL 0.3 mg/dL (0.2-1.3); BLOOD UREA NITROGEN 7 mg/dL (7-20); CALCIUM 9.4 mg/dL (8.4-10.2); CARBON DIOXIDE 26 mmol/L (22-30); CHLORIDE 102 mmol/L (98-107); GLUCOSE 112 mg/dL (75-110); POTASSIUM 3.9 mmol/L (3.6-5.0); SODIUM 136.8 mmol/L (137-145); TOTAL PROTEIN 7.4 g/dL (6.3-8.2)
[2017-12-08] MEDS: AZITHROMYCIN 500 MG in DEXTROSE 5%-WATER 250 ML IV SCH (23:21)
[2017-12-09] MEDS: ACETAMINOPHEN 325 MG TABLET PO PRN (02:03)
[2017-12-09] MEDS: LORAZEPAM INJ 2 MG/1 ML VIAL IV PRN (02:06)
[2017-12-09 05:04] LABS: ALANINE AMINOTRANSFERASE 60 U/L (21-72); ALBUMIN 3.5 g/dL (3.5-5.0); ALKALINE PHOSPHATASE 92 U/L (38-126); ANION GAP 8 (5-19); ASPARTATE AMINO TRANSFERASE 42 U/L (17-59); BILIRUBIN,DIRECT 0.4 mg/dL (0.0-0.4); BILIRUBIN,TOTAL 0.4 mg/dL (0.2-1.3); BLOOD UREA NITROGEN 7 mg/dL (7-20); CALCIUM 9.5 mg/dL (8.4-10.2); CARBON DIOXIDE 25 mmol/L (22-30); CHLORIDE 104 mmol/L (98-107); GLUCOSE 98 mg/dL (75-110); POTASSIUM 3.8 mmol/L (3.6-5.0); SODIUM 136.5 mmol/L (137-145)
[2017-12-09] MEDS: HEPARIN SOD (PORCINE) 5,000 UNIT/ML 1 ML SYRINGE SUBCUT SCH ×3 (07:01→22:49)
[2017-12-09] MEDS: LORAZEPAM 1 MG TABLET PO SCH ×3 (07:37→17:49)
[2017-12-09] MEDS: THIAMINE HCL 100 MG TABLET PO SCH (09:11)
[2017-12-09] MEDS: FOLIC ACID 1 MG TABLET PO SCH (09:11)
[2017-12-09] MEDS: FLUTICASONE NASAL SPRAY 50 MCG/SPRY 120 SPRAY/16 GM NASL SCH ×2 (09:14→22:50)
--- NOTE | 2017-12-09 16:35 | PDOC PROGRESS REPORT ---
Subjective Progress Note for:: 12/09/17 Subjective:: Admitted with difficulty breathing Reason For Visit: COPD EXACERBATION, PNEUMONIA Physical Exam Vital Signs: Temp Pulse Resp BP Pulse Ox 99.2 F 83 16 99/72 L 97 12/09/17 11:26 12/09/17 11:26 12/09/17 11:26 12/09/17 11:26 12/09/17 11:26 Intake & Output 12/08/17 12/09/17 12/10/17 06:59 06:59 06:59 Intake Total 1705 951 Output Total 625 300 Balance 1080 651 Weight 531 kg 53.8 kg General appearance: PRESENT: no acute distress, thin, other - Chronically ill looking. ABSENT: well-developed Head exam: PRESENT: atraumatic Eye exam: PRESENT: conjunctiva pink, EOMI, PERRLA. ABSENT: scleral icterus Respiratory exam: PRESENT: clear to auscultation ammon. ABSENT: rales, rhonchi, wheezes Cardiovascular exam: PRESENT: RRR. ABSENT: diastolic murmur, rubs, systolic murmur GI/Abdominal exam: PRESENT: normal bowel sounds, soft. ABSENT: distended, guarding, mass, organolmegaly, rebound, tenderness Rectal exam: PRESENT: deferred Neurological exam: PRESENT: alert, awake, other - confused Results Laboratory Results: 12/07/17 06:30 12/09/17 04:12 12/08/17 12/09/17 19:05 04:12 Sodium 136.8 L 136.5 L Potassium 3.9 3.8 Chloride 102 104 Carbon Dioxide 26 25 Anion Gap 9 8 BUN 7 7 Creatinine 0.69 0.63 Est GFR ( Amer) > 60 > 60 Est GFR (Non-Af Amer) > 60 > 60 Glucose 112 H 98 Calcium 9.4 9.5 Total Bilirubin 0.3 0.4 AST 50 42 ALT 63 60 Alkaline Phosphatase 99 92 Total Protein 7.4 7.0 Albumin 3.7 3.5 12/03/17 05:47 Creatine Kinase 95 Impressions: Chest X-Ray 12/02/17 21:20 IMPRESSION: Chronic lung changes with small right pleural effusion and no acute cardiopulmonary disease. Chest CT 12/03/17 00:00 IMPRESSION: 1. Multifocal right-sided pneumonia. 2. No acute abdominal or pelvic findings. Abdomen/Pelvis CT 12/07/17 10:51 IMPRESSION: NO SIGNIFICANT OR ACUTE FINDING IN THE ABDOMEN OR PELVIS ON CT SCAN WITH IV CONTRAST. AGAIN SEEN ARE SCATTERED PARENCHYMAL OPACITIES IN THE RIGHT LUNG BASE. Assessment & Plan - Time Time Spent with patient: 15-24 minutes Medications reviewed and adjusted accordingly: Yes Anticipated discharge: Acute Rehab Within: within 72 hours - Plan Summary Plan Summary: Patient apparently had been under going alcohol withdrawal. He has been intermittently confused and is hard to use restraints. Alcohol withdrawal syndrome secondary to alcohol abuse. He appeared to be improving 2. Community-acquired pneumonia he is finishing up his antibiotics 3. Hyponatremia likely secondary to alcohol use. Improving 4. His positive blood cultures from the showed 1 bottle yielding bacillus. Patient was treated with ertrapenem. Repeat blood cultures since he is still here.
[2017-12-09] MEDS ORDERED: LORAZEPAM INJ 2 MG/1 ML VIAL IV PRN (18:51)
[2017-12-09] MEDS ORDERED: LORAZEPAM 1 MG TABLET PO SCH (18:52)
[2017-12-09] MEDS: AZITHROMYCIN 500 MG in DEXTROSE 5%-WATER 250 ML IV SCH (22:49)
[2017-12-10] MEDS: LORAZEPAM 0.5 MG TABLET PO SCH ×5 (00:20→23:21)
[2017-12-10 05:38] LABS: HEMATOCRIT 39.2 % (37.9-51.0); HEMOGLOBIN 13.1 g/dL (13.5-17.0); MEAN CORPUSCULAR HEMOGLOBIN 31.9 pg (27.0-33.4); MEAN CORPUSCULAR HGB CONC 33.3 g/dL (32.0-36.0); MEAN CORPUSCULAR VOLUME 96 fl (80-97); PLATELET COUNT 360 10^3/uL (150-450); RED CELL DISTRIBUTION WIDTH 13.8 % (11.5-14.0); WHITE BLOOD COUNT 7.8 10^3/uL (4.0-10.5)
[2017-12-10] MEDS: HEPARIN SOD (PORCINE) 5,000 UNIT/ML 1 ML SYRINGE SUBCUT SCH ×3 (06:09→22:06)
--- NOTE | 2017-12-10 09:39 | PDOC PROGRESS REPORT ---
Subjective Progress Note for:: 12/10/17 Subjective:: Admitted with difficulty breathing Reason For Visit: COPD EXACERBATION, PNEUMONIA Physical Exam Vital Signs: Temp Pulse Resp BP Pulse Ox 99.5 F 90 20 112/75 100 12/10/17 08:01 12/10/17 08:01 12/10/17 08:01 12/10/17 08:01 12/10/17 08:01 Intake & Output 12/09/17 12/10/17 12/11/17 06:59 06:59 06:59 Intake Total 951 925 Output Total 300 275 Balance 651 650 Weight 53.8 kg 52.2 kg General appearance: PRESENT: no acute distress, thin - Chronically ill looking Head exam: PRESENT: atraumatic Ear exam: PRESENT: normal external ear exam Teeth exam: PRESENT: poor dentation Respiratory exam: PRESENT: clear to auscultation ammon. ABSENT: rales, rhonchi, wheezes Cardiovascular exam: PRESENT: RRR. ABSENT: diastolic murmur, rubs, systolic murmur GI/Abdominal exam: PRESENT: normal bowel sounds, soft. ABSENT: distended, guarding, mass, organolmegaly, rebound, tenderness Rectal exam: PRESENT: deferred Neurological exam: PRESENT: alert, awake, oriented to person. ABSENT: motor sensory deficit Psychiatric exam: PRESENT: appropriate affect, normal mood. ABSENT: homicidal ideation, suicidal ideation Results Laboratory Results: 12/10/17 04:44 12/09/17 04:12 12/10/17 04:44 WBC 7.8 RBC 4.10 L Hgb 13.1 L Hct 39.2 MCV 96 MCH 31.9 MCHC 33.3 RDW 13.8 Plt Count 360 12/03/17 05:47 Creatine Kinase 95 Impressions: Chest X-Ray 12/02/17 21:20 IMPRESSION: Chronic lung changes with small right pleural effusion and no acute cardiopulmonary disease. Chest CT 12/03/17 00:00 IMPRESSION: 1. Multifocal right-sided pneumonia. 2. No acute abdominal or pelvic findings. Abdomen/Pelvis CT 12/07/17 10:51 IMPRESSION: NO SIGNIFICANT OR ACUTE FINDING IN THE ABDOMEN OR PELVIS ON CT SCAN WITH IV CONTRAST. AGAIN SEEN ARE SCATTERED PARENCHYMAL OPACITIES IN THE RIGHT LUNG BASE. Assessment & Plan - Time Time Spent with patient: 15-24 minutes Medications reviewed and adjusted accordingly: Yes Anticipated discharge: SNF Within: within 72 hours - Plan Summary Plan Summary: 1. Patient apparently had been under going alcohol withdrawal. He is much better today in fact has been off restraints and is cooperative. 2. Community-acquired pneumonia-completed antibiotics 3. Hyponatremia likely secondary to alcohol use. Improving 4. His positive blood cultures from the showed 1 bottle yielding bacillus. Patient was treated with ertrapenem. Repeat blood cultures pending 5. Alcohol withdrawal syndrome secondary to alcohol abuse. He appeared to be improving. 6. Obtain PT eval and dc planning
[2017-12-10] MEDS: THIAMINE HCL 100 MG TABLET PO SCH (09:56)
[2017-12-10] MEDS: FOLIC ACID 1 MG TABLET PO SCH (09:56)
[2017-12-10] MEDS: FLUTICASONE NASAL SPRAY 50 MCG/SPRY 120 SPRAY/16 GM NASL SCH ×2 (09:57→22:06)
[2017-12-11] MEDS: HEPARIN SOD (PORCINE) 5,000 UNIT/ML 1 ML SYRINGE SUBCUT SCH ×3 (05:01→23:40)
[2017-12-11] MEDS: LORAZEPAM 0.5 MG TABLET PO SCH ×4 (05:02→23:40)
--- NOTE | 2017-12-11 08:11 | RADIOLOGY REPORT (SQ) ---
EXAM DESCRIPTION: CHEST 2 VIEWS COMPLETED DATE/TIME: 12/11/2017 7:41 am REASON FOR STUDY: Follow up CHF COMPARISON: Chest film 12/02/2017 CT chest 12/03/2017 EXAM PARAMETERS: NUMBER OF VIEWS: two views TECHNIQUE: Digital Frontal and Lateral radiographic views of the chest acquired. RADIATION DOSE: NA LIMITATIONS: none FINDINGS: LUNGS AND PLEURA: Chronic blunting of the right and left lateral costophrenic sulci. No f luffy alveolar infiltrates worrisome for acute pneumonia or pulmonary edema. No pleural effusion. N o pneumothorax. MEDIASTINUM AND HILAR STRUCTURES: No masses or contour abnormalities. HEART AND VASCULAR STRUCTURES: Heart normal size. No evidence for failure. BONES: No acute findings. HARDWARE: None in the chest. OTHER: No other significant finding. IMPRESSION: Chronic blunting of the right and left lateral costophrenic sulci. No acute changes TECHNICAL DOCUMENTATION: JOB ID: [id number] [employer]- All Rights Reserved Reading location - IP/workstation name: [email or web address]
[2017-12-11] MEDS: THIAMINE HCL 100 MG TABLET PO SCH (10:28)
[2017-12-11] MEDS: FOLIC ACID 1 MG TABLET PO SCH (10:28)
[2017-12-11] MEDS: FLUTICASONE NASAL SPRAY 50 MCG/SPRY 120 SPRAY/16 GM NASL SCH ×2 (10:28→23:41)
--- NOTE | 2017-12-11 14:02 | PDOC PROGRESS REPORT ---
Subjective Progress Note for:: 12/11/17 Subjective:: Admitted with difficulty breathing Reason For Visit: COPD EXACERBATION, PNEUMONIA Physical Exam Vital Signs: Temp Pulse Resp BP Pulse Ox 98.8 F 60 18 106/69 95 12/11/17 11:39 12/11/17 11:39 12/11/17 11:39 12/11/17 11:39 12/11/17 11:39 Intake & Output 12/10/17 12/11/17 12/12/17 06:59 06:59 06:59 Intake Total 925 1300 Output Total 275 1300 Balance 650 0 Weight 52.2 kg 52.3 kg General appearance: PRESENT: no acute distress, thin Eye exam: PRESENT: conjunctiva pink, EOMI, PERRLA. ABSENT: scleral icterus Ear exam: PRESENT: normal external ear exam Mouth exam: PRESENT: moist, tongue midline Neck exam: ABSENT: carotid bruit, JVD, lymphadenopathy, thyromegaly Respiratory exam: PRESENT: clear to auscultation ammon. ABSENT: rales, rhonchi, wheezes Cardiovascular exam: PRESENT: RRR. ABSENT: diastolic murmur, rubs, systolic murmur GI/Abdominal exam: PRESENT: normal bowel sounds, soft. ABSENT: distended, guarding, mass, organolmegaly, rebound, tenderness Extremities exam: PRESENT: full ROM. ABSENT: calf tenderness, clubbing, pedal edema Neurological exam: PRESENT: alert, awake, oriented to person, oriented to time Psychiatric exam: PRESENT: appropriate affect, normal mood. ABSENT: homicidal ideation, suicidal ideation Results Laboratory Results: 12/10/17 04:44 12/09/17 04:12 12/03/17 05:47 Creatine Kinase 95 Impressions: Chest CT 12/03/17 00:00 IMPRESSION: 1. Multifocal right-sided pneumonia. 2. No acute abdominal or pelvic findings. Abdomen/Pelvis CT 12/07/17 10:51 IMPRESSION: NO SIGNIFICANT OR ACUTE FINDING IN THE ABDOMEN OR PELVIS ON CT SCAN WITH IV CONTRAST. AGAIN SEEN ARE SCATTERED PARENCHYMAL OPACITIES IN THE RIGHT LUNG BASE. Chest X-Ray 12/11/17 08:00 IMPRESSION: Chronic blunting of the right and left lateral costophrenic sulci. No acute changes Assessment & Plan - Time Time Spent with patient: 15-24 minutes Medications reviewed and adjusted accordingly: Yes Anticipated discharge: Home Within: within 24 hours - Inpatient Certification Based on my medical assessment, after consideration of the patient's comorbidities, presenting symptoms, or acuity I expect that the services needed warrant INPATIENT care.: Yes Medical Necessity: Risk of Complication if Not Cared For in Hospital - Plan Summary Plan Summary: 1. Patient is stabilized. He hasn't serjio out of bed though so will need PT prior to 2. Community-acquired pneumonia-completed antibiotics 3. Hyponatremia likely secondary to alcohol use. 4. His positive blood cultures from the showed 1 bottle yielding bacillus. Patient was treated with ertrapenem. Repeat blood cultures negative. No further abx needed 5. Alcohol withdrawal syndrome secondary to alcohol abuse. 6. Obtain PT eval and hopefully home in am
[2017-12-12] MEDS: HEPARIN SOD (PORCINE) 5,000 UNIT/ML 1 ML SYRINGE SUBCUT SCH (05:40)
[2017-12-12] MEDS: LORAZEPAM 0.5 MG TABLET PO SCH ×2 (05:40→14:24)
[2017-12-12] MEDS: FOLIC ACID 1 MG TABLET PO SCH (09:58)
[2017-12-12] MEDS: THIAMINE HCL 100 MG TABLET PO SCH (09:59)
[2017-12-12] MEDS: FLUTICASONE NASAL SPRAY 50 MCG/SPRY 120 SPRAY/16 GM NASL SCH (09:59)
--- NOTE | 2017-12-12 10:51 | PDOC DISCHARGE SUMMARY ---
General - Admit/Disc Date/PCP Admission Date/Primary Care Provider: 12/03/17 01:47 Discharge Date: 12/12/17 - Discharge Diagnosis (1) Alcohol withdrawal syndrome Is this a current diagnosis for this admission?: Yes (2) Anemia Is this a current diagnosis for this admission?: Yes (3) Community acquired bacterial pneumonia Is this a current diagnosis for this admission?: Yes (4) Hyponatremia Is this a current diagnosis for this admission?: Yes (5) Malnutrition of moderate degree Is this a current diagnosis for this admission?: Yes - Additional Information Discharge Diet: As Tolerated Discharge Activity: Activity As Tolerated, Balance Activity w/Rest Prescriptions: Fluticasone Propionate [Flonase Nasal Burke 50 Mcg/Burke 16 gm] 2 spray NASL Q12 28 Days #1 spray.pump Home Medications: Fluticasone Propionate [Flonase Nasal Burke 50 Mcg/Burke 16 gm] 2 spray NASL Q12 28 Days #1 spray.pump 12/12/17 Folic Acid [Folvite 1 mg Tablet] 1 mg PO DAILY tablet 12/12/17 Thiamine HCl [Thiamine 100 mg Tablet] 100 mg PO DAILY tablet 12/12/17 History of Present Illness History of Present Illness: VANESA URIARTE is a 57 year old male Patient presented to the emergency room with complaints of generalized malaise and just not feeling well. He was found to have a multifocal right-sided pneumonia. Patient was started on intravenous antibiotics and he did appear to respond pretty well to these. 1 of his blood cultures grew gram-positive bacillus but this may have been a contaminant however patient was treated with Ertrapenem and his infection is cleared. However went into alcohol withdrawal syndrome. He does have a history of alcohol abuse with his last drink prior to admission. He was treated with benzodiazepines and at this point is over the withdrawal episode. He has been strongly advised to abstain from alcohol use. Patient is physically deconditioned. He was seen by physical therapy and ambulated with the aid of a walker and he will be sent home with a rolling walker. We will unable to arrange for a home health aide due to patient's lack of financial and technical resources however his sister has agreed to be with him and assist in his daily care throughout this point he is been discharged to the care of his family. Hospital Course Hospital Course: Patient presented to the emergency room with complaints of generalized malaise and just not feeling well. He was found to have a multifocal right-sided pneumonia. Physical Exam Vital Signs: Temp Pulse Resp BP Pulse Ox 98.4 F 77 12 112/74 98 12/12/17 08:00 12/12/17 08:00 12/12/17 08:00 12/12/17 08:00 12/12/17 08:00 Intake & Output 12/11/17 12/12/17 12/13/17 06:59 06:59 06:59 Intake Total 1300 1577 Output Total 1300 1685 Balance 0 -108 Weight 52.3 kg 52.4 kg General appearance: PRESENT: no acute distress, thin Head exam: PRESENT: atraumatic Ear exam: PRESENT: normal external ear exam Neck exam: PRESENT: carotid bruit Cardiovascular exam: PRESENT: RRR. ABSENT: diastolic murmur, rubs, systolic murmur GI/Abdominal exam: PRESENT: normal bowel sounds, soft. ABSENT: distended, guarding, mass, organolmegaly, rebound, tenderness Rectal exam: PRESENT: deferred Neurological exam: PRESENT: alert, awake, oriented to person, oriented to place , oriented to time, oriented to situation, CN II-XII grossly intact. ABSENT: motor sensory deficit Skin exam: PRESENT: dry, intact, warm. ABSENT: cyanosis, rash Results Laboratory Results: 12/10/17 04:44 12/09/17 04:12 12/03/17 05:47 Creatine Kinase 95 Impressions: Chest CT 12/03/17 00:00 IMPRESSION: 1. Multifocal right-sided pneumonia. 2. No acute abdominal or pelvic findings. Abdomen/Pelvis CT 12/07/17 10:51 IMPRESSION: NO SIGNIFICANT OR ACUTE FINDING IN THE ABDOMEN OR PELVIS ON CT SCAN WITH IV CONTRAST. AGAIN SEEN ARE SCATTERED PARENCHYMAL OPACITIES IN THE RIGHT LUNG BASE. Chest X-Ray 12/11/17 08:00 IMPRESSION: Chronic blunting of the right and left lateral costophrenic sulci. No acute changes Qualifiers - * PATEINT BEING DISCHARGED WITH ANY OF THE FOLLOWING DIAGNOSIS?: No Plan Time Spent: Greater than 30 Minutes
[2017-12-12 12:43] VITALS: BP 130/81
== END 2017-12-12 15:35 | disposition home or self-care (01) | DRG 194 ==
LOC: ER 20:56 → EH 12-03 01:47 → 4N 12-03 03:52
PROVIDERS: ADMIT Internal Medicine; ATTEND Internal Medicine
DX: J18.9 Pneumonia, unspecified organism (principal); F10.239 Alcohol dependence with withdrawal, unspecified; E87.1 Hypo-osmolality and hyponatremia; E44.0 Moderate protein-calorie malnutrition; Z68.1 Body mass index [BMI] 19.9 or less, adult; D64.9 Anemia, unspecified; F17.210 Nicotine dependence, cigarettes, uncomplicated; Y90.9 Presence of alcohol in blood, level not specified
CPT/HCPCS: 36415; 71045; 71046; 71260; 74177; 80048; 80053; 80076; 81001; 82272; 82550; 82553; 83735; 84484; 85025; 85027; 87040; 87077; 87493; 93005; 93010; 94640; 94799; 96361; 96374; 99285; J0456; J0696; J1335; J1644; J1885; J2060; J2405; J3411; J3490; J7030; J7050; J7060; J7620

== ENCOUNTER 2018-04-02 21:45 | Emergency (ER) | payer MEDICAID ==
[2018-04-03] MEDS ORDERED: ACETAMINOPHEN 325 MG TABLET PO ONE
--- NOTE | 2018-04-03 00:45 | ER Document Report ---
ED Fall - General Chief Complaint: Fall Injury Stated Complaint: FALL/CHEST PAIN Time Seen by Provider: 04/02/18 23:52 Notes: The patient is a 57-year-old male, chronic drinker, presents after he was walking outside, slipped and hit the back of his head. He is also complaining of left chest wall pain that he thinks he landed on his left chest wall too. He denies neck pain, blurry vision, blood thinner use, shortness of breath, abdominal pain or difficulty walking. TRAVEL OUTSIDE OF THE [place] IN LAST 30 DAYS: No - Related data Allergies/Adverse Reactions: No Known Allergies Allergy (Verified 04/02/18 22:06) Past Medical History - General Information source: Patient - Social History Smoking Status: Unknown if Ever Smoked Frequency of alcohol use: Heavy Family History: COPD Pulmonary Medical History: Reports: Hx Bronchitis, Hx COPD Renal/ Medical History: Denies: Hx Peritoneal Dialysis Psychiatric Medical History: Denies: Hx Depression Review of Systems - Review of Systems Notes: REVIEW OF SYSTEMS: CONSTITUTIONAL: -fevers, -chills EENT: -eye pain, -difficulty swallowing, -nasal congestion CARDIOVASCULAR: +left chest wall pain, -syncope. RESPIRATORY: -cough, -SOB GASTROINTESTINAL: -abdominal pain, -nausea, -vomiting, -diarrhea GENITOURINARY: -dysuria, -hematuria MUSCULOSKELETAL: -back pain, -neck pain SKIN: -rash or skin lesions. HEMATOLOGIC: -easy bruising or bleeding. LYMPHATIC: -swollen, enlarged glands. NEUROLOGICAL: -altered mental status or loss of consciousness, +headache, - neurologic symptoms PSYCHIATRIC: -anxiety, -depression. ALL OTHER SYSTEMS REVIEWED AND NEGATIVE. Physical Exam - Vital signs Vitals: Temp Pulse Resp BP Pulse Ox 97.8 F 99 16 145/85 H 100 04/02/18 22:02 04/02/18 22:02 04/02/18 22:02 04/02/18 22:02 04/02/18 22:02 - Notes Notes: PHYSICAL EXAMINATION: GENERAL: Well-appearing, well-nourished and in no acute distress. Clinically intoxicated. HEAD: Atraumatic, normocephalic. EYES: Pupils equal round and reactive to light, extraocular movements intact, sclera anicteric, conjunctiva are normal. ENT: nares patent, oropharynx clear without exudates. Moist mucous membranes. NECK: Normal range of motion, supple without lymphadenopathy LUNGS: Breath sounds clear to auscultation bilaterally and equal. No wheezes rales or rhonchi. HEART: Regular rate and rhythm without murmurs CHEST WALL: Tenderness over left lateral chest wall, no step-offs. ABDOMEN: Soft, nontender, normoactive bowel sounds. No guarding, no rebound. No masses appreciated. EXTREMITIES: Normal range of motion, no pitting or edema. No cyanosis. NEUROLOGICAL: Cranial nerves grossly intact. Normal speech, normal gait. Normal sensory and motor exams. PSYCH: Normal mood, normal affect. SKIN: Warm, Dry, normal turgor, no rashes or lesions noted. Course - Re-evaluation Re-evalutation: Patient without any skull fracture or head bleeds on CT scan. He also does not have any rib fractures on chest or rib x-rays. Blood work is unremarkable, other than an alcohol level of 288. Patient is a chronic alcoholic and is ambulating around the ER without difficulty. Pt's glucose was 69 and the patient drank juice in the ER. Family is at bedside and said they will take the patient home. Instructed him to try to cut down his alcohol use and to go to detox. Given very strict return precautions and he and the family understand. - Vital Signs Vital signs: Temp Pulse Resp BP Pulse Ox 97.8 F 99 15 128/89 H 100 04/02/18 22:02 04/02/18 22:02 04/03/18 01:05 04/03/18 01:05 04/03/18 01:05 - Laboratory Result Diagrams: 04/03/18 00:19 04/03/18 00:19 Laboratory results interpreted by me: 04/03/18 04/03/18 00:19 00:19 WBC 3.3 L RBC 4.31 L RDW 15.7 H Seg Neutrophils % 23.6 L Lymphocytes % 61.9 H Absolute Neutrophils 0.8 L Sodium 145.1 H Glucose 69 L Total Protein 8.5 H - Diagnostic Test Radiology reviewed: Image reviewed, Reports reviewed Radiology results interpreted by me: Head CT: NAD Left rib x-ray: NAD Discharge - Discharge Clinical Impression: Left-sided chest wall pain Head contusion Qualifiers: Encounter type: initial encounter Contusion of head detail: scalp Qualified Code(s): S00.03XA - Contusion of scalp, initial encounter Condition: Stable Disposition: HOME, SELF-CARE Additional Instructions: Try to stop drinking alcohol as this may help prevent any falls. Do not stop drinking immediately as you may have seizures. Go to [facility] to help with alcohol detox. Contusion Your injury has resulted in a contusion -- a crushing of the deep tissues. No injury to important structures was detected during the physician's exam. Contusions vary in the amount of pain they cause, and in the length of time required for healing. Typically, the area will become bruised, and will remain painful to touch for two or three weeks. However, most patients are back to working and playing within a few days. After the initial period of rest and cold-packs, your symptoms (together with the doctor's recommendations) will determine how rapidly you can get back to full activity. Usually this means "do what feels okay, but don't do things that hurt." If re-examination was recommended, it's important to follow up as instructed. Call the doctor or return any time if pain increases, if swelling becomes severe, if you develop numbness or weakness in an injured extremity, or if any other alarming symptoms occur. CHEST PAIN OF UNCLEAR CAUSE: The exact cause of your chest pain isn't clear. Fortunately, there is no evidence of a dangerous medical condition. Further testing may be required to find the source of the pain. Most often, we find that this pain is coming from the chest wall -- the muscles or rib joints in the chest. But chest pain can come from the lung and lung lining, the esophagus, the heart valves or heart lining, and even the stomach or gallbladder. Rest. Eat lightly until the pain is gone. We may prescribe medicine for pain and inflammation. You should call the physician immediately if the pain radiates to the shoulder, jaw or arms; if you start to run a fever or develop a cough; or if you develop shortness of breath, or other new or alarming symptoms. NORMAL EXAM AND WORKUP: At this time, your examination and workup show no significant abnormality. No significant abnormal physical findings were noted. All laboratory, EKG, and imaging (x-ray, CT scans, ultrasound) studies that were ordered show no significant abnormality. Although your examination and all studies that were ordered showed no significant abnormal finding, there are no examinations and no studies that are 100% accurate. There is always the possibility that some abnormality could exist and not be detected with physical examination or within the limits and capabilities of laboratory and other studies. You should return or follow up as you were instructed on your visit today for further evaluation if your symptoms do not resolve. CHEST WALL PAIN: Your chest pain may be coming from the chest wall. This is often caused by straining the muscles or joints in the chest during physical activity, direct trauma, coughing, or vigorous vomiting. Persons with arthritis are especially prone to this type of pain, due to inflammation of the cartilage joints near the breast bone. Occasionally, no cause can be found. Rest from strenuous physical activity. This kind of chest pain is usually made worse by movement of the chest. Depending on the symptoms, we may prescribe medicine for pain, muscle relaxation, and antiinflammatory effects. If the pain is new, and seems to be due to muscle strain, cold packs can help. Otherwise, apply gentle warmth to the painful area for 15 minutes every hour or two. You should call contact the doctor immediately if things change. Further evaluation is needed if you develop a fever or cough, if the nature of the pain changes, or if you become short of breath. FOLLOW-UP CARE: If you have been referred to a physician for follow-up care, call the physician s office for an appointment as you were instructed or within the next two days. If you experience worsening or a significant change in your symptoms, notify the physician immediately or return to the Emergency Department at any time for re-evaluation. Forms: Elevated Blood Pressure Referrals: [facility] [Outside] - Follow up as needed
--- NOTE | 2018-04-03 01:26 | RADIOLOGY REPORT (SQ) ---
EXAM DESCRIPTION: XR RIBS UNILATERAL WITH CHEST COMPLETED DATE/TME: 04/03/2018 00:00 CLINICAL HISTORY: 57 years, Male, left rib pain after fall COMPARISON: 12/11/2017 FINDINGS: Single view of the chest with 2 views of the left ribs. Cardiomediastinal silhouette has normal size and contour. Leads overlie the chest. Stable blunting of the bilateral costophrenic angles may be related to scarring. No large effusion, pneumothorax, or consolidation. No left rib fractures identified. IMPRESSION: No left rib fractures identified. 2011 [employer]- All Rights Reserved
--- NOTE | 2018-04-03 01:27 | RADIOLOGY REPORT (SQ) ---
EXAM DESCRIPTION: CT brain without contrast, April 03, 2018 at 12:52 AM CLINICAL HISTORY: fall, head injury COMPARISON: None Available. TECHNIQUE: Contiguous axial images of the brain were obtained without the administration of intravenous contrast. This exam was performed according to our departmental dose-optimization program, which includes automated exposure control, adjustment of the mA and/or kV according to patient size and/or use of iterative reconstruction technique. FINDINGS: There is no acute intracranial hemorrhage or mass effect. Ventricular system is within normal limits. There is generalized atrophy. There is adequate clarke-white matter differentiation. There is no skull fracture. The visualized paranasal sinuses and mastoid air cells are within normal limits. IMPRESSION: No acute intracranial abnormalities.
[2018-04-03 01:29] LABS: ABSOLUTE MONOCYTES (AUTO) 0.4 10^3/uL (0.1-1.4); ABSOLUTE NEUT (AUTO) 0.8 10^3/uL (1.7-8.2); BASOPHILS % (AUTO) 0.8 % (0-2); EOSINOPHILS % (AUTO) 1.4 % (0-6); HEMATOCRIT 41.5 % (37.9-51.0); HEMOGLOBIN 14.3 g/dL (13.5-17.0); LYMPHOCYTES % (AUTO) 61.9 % (13-45); MEAN CORPUSCULAR HEMOGLOBIN 33.2 pg (27.0-33.4); MEAN CORPUSCULAR HGB CONC 34.5 g/dL (32.0-36.0); MEAN CORPUSCULAR VOLUME 96 fl (80-97); MONOCYTES % (AUTO) 12.3 % (3-13); PLATELET COUNT 239 10^3/uL (150-450); RED BLOOD COUNT 4.31 10^6/uL (4.35-5.55); RED CELL DISTRIBUTION WIDTH 15.7 % (11.5-14.0); SEGMENTED NEUTROPHILS % (AUTO) 23.6 % (42-78); TOTAL CELLS COUNTED % (AUTO) 100 %; WHITE BLOOD COUNT 3.3 10^3/uL (4.0-10.5)
[2018-04-03 01:50] LABS: ALANINE AMINOTRANSFERASE 37 U/L (21-72); ALBUMIN 4.4 g/dL (3.5-5.0); ALCOHOL 288 mg/dL (NONE DETECTED); ALKALINE PHOSPHATASE 124 U/L (38-126); ANION GAP 18 (5-19); ASPARTATE AMINO TRANSFERASE 59 U/L (17-59); BILIRUBIN,DIRECT 0.3 mg/dL (0.0-0.4); BILIRUBIN,TOTAL 0.3 mg/dL (0.2-1.3); BLOOD UREA NITROGEN 11 mg/dL (7-20); CALCIUM 9.1 mg/dL (8.4-10.2); CARBON DIOXIDE 23 mmol/L (22-30); CHLORIDE 104 mmol/L (98-107); GLUCOSE 69 mg/dL (75-110); POTASSIUM 4.2 mmol/L (3.6-5.0); SODIUM 145.1 mmol/L (137-145); TOTAL PROTEIN 8.5 g/dL (6.3-8.2)
[2018-04-03 03:22] VITALS: BP 100/72
--- NOTE | 2018-04-03 09:16 | EKG REPORT ---
SEVERITY:- OTHERWISE NORMAL ECG - SINUS RHYTHM APC FOLLOWED BY BLOCKED APC : Confirmed by: Tasha Mcgill MD 03-Apr-2018 09:16:00
== END 2018-04-03 02:30 | disposition home or self-care (01) ==
LOC: ER 21:45
DX: S00.03XA Contusion of scalp, initial encounter (principal); R07.89 Other chest pain; W01.0XXA Fall on same level from slipping, tripping and stumbling without subsequent striking against object, initial encounter
CPT/HCPCS: 93005; 99285; 36415; 80307; 85025; 80053; 71101; 70450; 93010; J3490